=== PATIENT | female | born 1960 | race Caucasian/White ===

== ENCOUNTER 2016-09-02 11:43 | Outpatient (CLI) | payer OTHER | END 2016-09-02 11:44 | disposition home or self-care (01) | DX: M79.671 Pain in right foot (principal) ==

== ENCOUNTER 2016-10-07 09:46 | Outpatient (CLI) | payer OTHER | END 2016-10-07 09:47 | disposition home or self-care (01) | DX: M51.37 Other intervertebral disc degeneration, lumbosacral region (principal) ==

== ENCOUNTER 2016-11-04 10:50 | Outpatient (CLI) | payer OTHER | END 2016-11-04 10:51 | disposition home or self-care (01) | DX: M51.36 Other intervertebral disc degeneration, lumbar region (principal); M51.37 Other intervertebral disc degeneration, lumbosacral region; M47.896 Other spondylosis, lumbar region; M47.897 Other spondylosis, lumbosacral region ==

== ENCOUNTER 2017-06-30 09:40 | Outpatient (CLI) | payer OTHER ==
--- NOTE | 2017-06-30 11:48 | XRAY Report ---
DATE OF SERVICE: 06/30/2017 RIGHT SHOULDER: 06/30/2017 COMPARISON: None. INDICATION: Right shoulder pain with trauma. TECHNIQUE: Three views of the shoulder. FINDINGS: Normal alignment. No evidence of acute fracture. There are mild degenerative changes of the acromioclavicular joint. IMPRESSION: MILD AC JOINT ARTHROSIS. TD: 06/30/2017 12:33 [facility]
== END 2017-06-30 09:41 | disposition home or self-care (01) ==
LOC: DI 09:40
PROVIDERS: ATTEND Physician Assistant
DX: M19.011 Primary osteoarthritis, right shoulder (principal)

== ENCOUNTER 2017-08-23 09:12 | Outpatient (CLI) | payer OTHER ==
[2017-08-23 18:24] LABS: ALBUMIN 4.1 g/dL (3.2-5.5); BILIRUBIN,DIRECT 0.1 mg/dL (0.1-0.5); BILIRUBIN,TOTAL 0.6 mg/dL (0.2-1.0); TOTAL PROTEIN 8.2 g/dL (6.7-8.2)
[2017-08-24 12:56] LABS: HEPATITIS B SURFACE ANTIGEN NON-REACTIVE (NON-REACTIVE)
[2017-08-26 01:58] LABS: HEPATITIS C VIRAL RNA GENOTYPE 1a
[2017-08-26 08:01] LABS: CERULOPLASMIN 31 mg/dL (18-53)
== END 2017-08-23 09:13 | disposition home or self-care (01) ==
LOC: LAB.F 09:12
PROVIDERS: ATTEND Physician Assistant
DX: B18.2 Chronic viral hepatitis C (principal)
CPT/HCPCS: 36415; 80076; 81599; 82104; 82390; 82728; 83516; 83540; 84466; 86255; 86709; 87340; 87522; 87902

== ENCOUNTER 2017-08-30 18:38 | Outpatient (CLI) | payer OTHER ==
--- NOTE | 2017-08-31 09:13 | Ultrasound Report ---
RIGHT UPPER QUADRANT ULTRASOUND: 08/30/2017 CLINICAL INDICATION: Abnormal LFTs, hepatitis C. TECHNIQUE: Real-time scanning was performed with [employer] static images obtained. FINDINGS: The liver measures 16 cm. Hepatic echogenicity is unremarkable. No intrahepatic biliary dilatation or focal parenchymal lesion is present. The common bile duct measures 5 mm. The gallbladder is normal. The right kidney measures 9.6 cm, and demonstrates no hydronephrosis. A mildly enlarged periportal lymph node is noted, measuring 2.0 x 1.3 x 1.3 cm. IMPRESSION: NO EVIDENCE OF FOCAL LIVER LESION. MILDLY ENLARGED PERIPORTAL LYMPH NODE, LIKELY RELATED TO HEPATITIS C. TD: 08/31/2017 09:11
== END 2017-08-30 18:39 | disposition home or self-care (01) ==
LOC: DI 18:38
PROVIDERS: ATTEND Physician Assistant
DX: B18.2 Chronic viral hepatitis C (principal); R94.5 Abnormal results of liver function studies
CPT/HCPCS: 76705

== ENCOUNTER 2018-01-04 08:10 | Outpatient (CLI) | payer OTHER ==
[2018-01-04 12:04] LABS: MEAN CORPUSCULAR HEMOGLOBIN 28.5 pg (27.0-31.0); MEAN CORPUSCULAR HGB CONC 32.1 g/dL (32.0-36.0); MEAN CORPUSCULAR VOLUME 88.8 fL (81.0-99.0); MEAN PLATELET VOLUME 9.7 fL (7.9-10.8); RED BLOOD COUNT 4.9 10^6/uL (4.20-5.40); WHITE BLOOD COUNT 4.6 x10^3/uL (4.8-10.8)
[2018-01-04 12:13] LABS: PT - PROTHROMBIN TIME 11.5 secs (9.9-12.6)
[2018-01-04 12:23] LABS: ALBUMIN 3.7 g/dL (3.2-5.5); ALBUMIN/GLOBULIN RATIO 0.9 (1.0-2.2); BILIRUBIN,TOTAL 0.7 mg/dL (0.2-1.0); CALCIUM 9.1 mg/dL (8.5-10.3); CREATININE 0.8 mg/dL (0.4-1.0); TOTAL PROTEIN 7.7 g/dL (6.7-8.2)
== END 2018-01-04 08:11 | disposition home or self-care (01) ==
LOC: LAB.F 08:10
PROVIDERS: ATTEND Internal Medicine
DX: B18.2 Chronic viral hepatitis C (principal)
CPT/HCPCS: 36415; 80053; 85027; 85610; 87522

== ENCOUNTER 2018-02-05 08:40 | Outpatient (CLI) | payer OTHER ==
[2018-02-05 12:19] LABS: ALBUMIN 3.3 g/dL (3.2-5.5); BILIRUBIN,DIRECT 0.1 mg/dL (0.1-0.5); BILIRUBIN,TOTAL 0.7 mg/dL (0.2-1.0); TOTAL PROTEIN 7.2 g/dL (6.7-8.2)
[2018-02-07 15:18] LABS: HCV RNA QNT <1.18 NOT DETECTED Log IU/mL (NOT DETECTED); HCV RNA QUANT RT PCR <15 NOT DETECTED IU/mL (NOT DETECTED)
== END 2018-02-05 08:41 | disposition home or self-care (01) ==
LOC: LAB.F 08:40
PROVIDERS: ATTEND Internal Medicine
DX: B18.2 Chronic viral hepatitis C (principal)
CPT/HCPCS: 36415; 80076; 87522

== ENCOUNTER 2018-04-20 10:53 | Outpatient (CLI) | payer OTHER ==
[2018-04-23 20:23] LABS: HCV RNA QNT <1.18 NOT DETECTED Log IU/mL (NOT DETECTED); HCV RNA QUANT RT PCR <15 NOT DETECTED IU/mL (NOT DETECTED)
== END 2018-04-20 10:54 | disposition home or self-care (01) ==
LOC: LAB.F 10:53
PROVIDERS: ATTEND Internal Medicine
DX: B18.2 Chronic viral hepatitis C (principal)
CPT/HCPCS: 36415; 87522

== ENCOUNTER 2018-08-14 03:26 | Emergency (ER) | payer OTHER ==
[2018-08-14] MEDS ORDERED: SODIUM CHLORIDE 0.9% 1,000 ML IV ONE ×3 (03:34→08:17)
[2018-08-14] MEDS ORDERED: METOCLOPRAMIDE 10 MG/2 ML VIAL IVP STA (03:34)
[2018-08-14] MEDS ORDERED: LORazepam 2 MG/ML VIAL IVP STA (03:35)
--- NOTE | 2018-08-14 03:58 | ED Physician Documentation ---
History of Present Illness - Stated complaint Stated Complaint: PAIN - Chief complaint Chief Complaint: General - Additonal information Additional information: 58-year-old female presents the emergency department for evaluation of a headache. The patient is unable to give a history secondary to pain and being in quite agitated. The patient's reports finding the patient in the bathroom complaining of a headache with vomiting and agitation. He denies that she took any extra Ambien or any extra of her benzodiazepine. No reports of head injury. No reports of fever or neck pain. No reports of focal motor weakness. Symptoms are described as severe. No reports of chest pain, shortness of breath, abdominal pain, trauma. No other associated symptoms. No relieving factors Review of Systems Constitutional: denies: Fever, Chills, Fatigue Eyes: denies: Discharge Ears: denies: Ear pain Nose: denies: Congestion Throat: denies: Dental pain / toothache Respiratory: denies: Dyspnea GI: denies: Abdominal Pain : denies: Dysuria Musculoskeletal: denies: Neck pain Neurologic: reports: Headache Immunocompromised: denies: Chemotherapy PD PAST MEDICAL HISTORY - Past Surgical History Past Surgical History: No - Present Medications Home Medications: Ambulatory Orders Medication Instructions Recorded Confirmed No Known Home Medications 06/01/16 06/01/16 - Allergies Allergies/Adverse Reactions: Allergies Allergy/AdvReac Type Severity Reaction Status Date / Time amoxicillin AdvReac Rash Verified 08/14/18 03:36 - Social History Does the pt smoke?: No Smoking Status: Never smoker Does the pt drink ETOH?: No Does the pt have substance abuse?: No PD ED PE NORMAL - General General: Other (The patient is alert and oriented and In significant distress) - HEENT HEENT: Atraumatic, PERRL, EOMI, Ears normal, Moist mucous membranes - Neck Neck: Supple, no meningeal sign - Cardiac Cardiac: RRR, Strong equal pulses - Respiratory Respiratory: No respiratory distress, Clear bilaterally - Abdomen Abdomen: Soft, Non tender - Derm Derm: Normal color - Extremities Extremities: No deformity, Normal ROM s pain - Neuro Neuro: Alert and oriented X 3, die baker 2-12 intact, No motor deficit, Normal speech Results - Vitals Vitals: Vital Signs - 24 hr 08/14/18 08/14/18 08/14/18 03:31 04:18 04:46 Temperature 36.5 C Heart Rate 101 H 84 84 Respiratory 22 26 H 22 Rate Blood Pressure 160/117 H 184/122 H 187/108 H O2 Saturation 97 100 98 08/14/18 08/14/18 08/14/18 05:04 05:26 06:12 Temperature Heart Rate 78 87 77 Respiratory 24 19 16 Rate Blood Pressure 164/82 H O2 Saturation 100 96 98 08/14/18 06:32 Temperature Heart Rate 72 Respiratory 15 Rate Blood Pressure 172/91 H O2 Saturation 99 Oxygen O2 Source Nasal cannula - EKG (time done) 04:49 Rhythm: NSR Intervals: Normal NE QRS: Normal Ischemia: Normal ST segments, Non specific changes - Labs Labs: Laboratory Tests 08/14/18 08/14/18 08/14/18 04:13 04:13 04:13 WBC 11.7 H RBC 5.85 H Hgb 16.7 H Hct 50.8 H MCV 86.8 MCH 28.6 MCHC 33.0 RDW 14.3 Plt Count 311 MPV 8.1 Neut # (Auto) 9.2 H Lymph # (Auto) 1.5 [place] # (Auto) 0.9 Eos # (Auto) 0.0 Baso # (Auto) 0.1 Absolute Nucleated RBC 0.01 Nucleated RBC % 0.1 PT 12.7 H INR 1.1 VBG Total Hgb VBG Oxyhemoglobin VBG Carboxyhemoglobin VBG Methemoglobin Sodium 134 L Potassium 3.7 Chloride 101 Carbon Dioxide 15 L Anion Gap 18.0 H BUN 16 Creatinine 0.9 Estimated GFR (MDRD) 65 L Glucose 150 H Calcium 9.8 Total Bilirubin 0.9 AST 48 H ALT 26 Alkaline Phosphatase 86 Ammonia Total Creatine Kinase 113 Troponin I Total Protein 9.2 H Albumin 4.5 Globulin 4.7 H Albumin/Globulin Ratio 1.0 Lipase 24 TSH Salicylates < 6.0 Acetaminophen 12 Ethyl Alcohol < 5.0 08/14/18 08/14/18 08/14/18 04:13 04:13 04:13 WBC RBC Hgb Hct MCV MCH MCHC RDW Plt Count MPV Neut # (Auto) Lymph # (Auto) [place] # (Auto) Eos # (Auto) Baso # (Auto) Absolute Nucleated RBC Nucleated RBC % PT INR VBG Total Hgb VBG Oxyhemoglobin VBG Carboxyhemoglobin VBG Methemoglobin Sodium Potassium Chloride Carbon Dioxide Anion Gap BUN Creatinine Estimated GFR (MDRD) Glucose Calcium Total Bilirubin AST ALT Alkaline Phosphatase Ammonia 20.4 Total Creatine Kinase Troponin I < 0.04 Total Protein Albumin Globulin Albumin/Globulin Ratio Lipase TSH 4.01 Salicylates Acetaminophen Ethyl Alcohol 08/14/18 04:22 WBC RBC Hgb Hct MCV MCH MCHC RDW Plt Count MPV Neut # (Auto) Lymph # (Auto) [place] # (Auto) Eos # (Auto) Baso # (Auto) Absolute Nucleated RBC Nucleated RBC % PT INR VBG Total Hgb 17.4 VBG Oxyhemoglobin 98 VBG Carboxyhemoglobin 0.6 VBG Methemoglobin 0.3 Sodium Potassium Chloride Carbon Dioxide Anion Gap BUN Creatinine Estimated GFR (MDRD) Glucose Calcium Total Bilirubin AST ALT Alkaline Phosphatase Ammonia Total Creatine Kinase Troponin I Total Protein Albumin Globulin Albumin/Globulin Ratio Lipase TSH Salicylates Acetaminophen Ethyl Alcohol - Rads (name of study) CXR Radiology: Final report received, See rad report (IMPRESSION: Normal single view chest. ) CT head Radiology: Final report received, See rad report PD MEDICAL DECISION MAKING - ED course ED course: The patient's initial noncontrast CT of the head did not show any significant abnormality but the patient continued to be quite symptomatic. A CT angiogram of the head and neck will be ordered to further assess the patient's headache. 07:00 AM The patient's care will be turned over to the oncoming emergency physician Dr. Chirinos for follow-up on the results of the CT angiogram and for final disposition Departure - Departure Clinical Impression: Acute headache Qualifiers: Headache type: unspecified Intractability: intractable Qualified Code(s): R51 - Headache
[2018-08-14 04:23] LABS: BASOPHILS # (AUTO) 0.1 10^3/uL (0.0-0.1); BASOPHILS % (AUTO) 0.5 %; EOSINOPHILS % (AUTO) 0.2 %; HGB - HEMOGLOBIN 16.7 g/dL (12.0-16.0); LYMPHOCYTES # (AUTO) 1.5 10^3/uL (1.5-3.5); LYMPHOCYTES % (AUTO) 13.1 %; MEAN CORPUSCULAR HEMOGLOBIN 28.6 pg (27.0-31.0); MEAN CORPUSCULAR VOLUME 86.8 fL (81.0-99.0); MEAN PLATELET VOLUME 8.1 fL (7.9-10.8); MONOCYTES # (AUTO) 0.9 10^3/uL (0.0-1.0); MONOCYTES % (AUTO) 7.6 %; NEUTROPHILS # (AUTO) 9.2 10^3/uL (1.5-6.6); NEUTROPHILS % (AUTO) 78.6 %; PLT - PLATELET COUNT 311 10^3/uL (130-450); RED BLOOD COUNT 5.85 10^6/uL (4.20-5.40); RED CELL DISTRIBUTION WIDTH 14.3 % (12.0-15.0); WHITE BLOOD COUNT 11.7 x10^3/uL (4.8-10.8)
[2018-08-14] MEDS ORDERED: LORazepam 2 MG/ML VIAL IM STA (04:24)
[2018-08-14 04:30] LABS: INR 1.1 (0.8-1.2); PT - PROTHROMBIN TIME 12.7 secs (9.9-12.6)
[2018-08-14 04:37] LABS: ACETAMINOPHEN 12 ug/mL (10-30); ALBUMIN 4.5 g/dL (3.2-5.5); ALKALINE PHOSPHATASE 86 IU/L (42-121); ALT ALANINE AMINOTRANSFERASE 26 IU/L (10-60); AST ASPARTATE AMINOTRANSFERASE 48 IU/L (10-42); BILIRUBIN,TOTAL 0.9 mg/dL (0.2-1.0); BUN - BLOOD UREA NITROGEN 16 mg/dL (6-20); CALCIUM 9.8 mg/dL (8.5-10.3); CARBON DIOXIDE - CO2 15 mmol/L (21-32); CHLORIDE 101 mmol/L (101-111); CK- CREATINE KINASE 113 IU/L (22-269); CREATININE 0.9 mg/dL (0.4-1.0); GFR - MDRD 65 (>89); GLUCOSE 150 mg/dL (70-100); LIPASE 24 U/L (22-51); SALICYLATE < 6.0 mg/dL; SODIUM 134 mmol/L (135-145); TOTAL PROTEIN 9.2 g/dL (6.7-8.2)
[2018-08-14] MEDS ORDERED: ACETAMINOPHEN 1,000 MG/100 ML 100 ML IV STA (04:54)
--- NOTE | 2018-08-14 05:05 | XRAY Report ---
Reason: chest pain Procedure Date: 08/14/2018 Accession Number: [id number] / [id number] Procedure: XR - Chest 1 View X-Ray CPT Code: 60024 FULL RESULT: EXAM: CHEST RADIOGRAPHY EXAM DATE: 08/14/2018 04:52 AM. CLINICAL HISTORY: Chest pain. COMPARISON: XR CHEST PA AND LAT 10/13/2010 4:15 PM. TECHNIQUE: 1 view. FINDINGS: Lungs/Pleura: No focal opacities evident. No pleural effusion. No pneumothorax. Mediastinum: Within exam limitations, the cardiomediastinal contour is normal. Other: None. IMPRESSION: Normal single view chest. RADIA
[2018-08-14] MEDS ORDERED: diphenhydrAMINE INJ 50 MG/ML VIAL IM STA (05:08)
[2018-08-14] MEDS ORDERED: PROMETHAZINE 25 MG/1 ML VIAL IM STA (05:08)
--- NOTE | 2018-08-14 05:16 | CT Report ---
Reason: confusion Procedure Date: 08/14/2018 Accession Number: [id number] / [id number] Procedure: CT - HEAD WO CPT Code: FULL RESULT: EXAM: CT HEAD EXAM DATE: 08/14/2018 04:47 AM. CLINICAL HISTORY: Confusion. COMPARISON: None. TECHNIQUE: Multiaxial CT images were obtained from the foramen magnum to the vertex. Reformats: Sagittal and coronal. IV contrast: None. In accordance with CT protocol optimization, one or more of the following dose reduction techniques were utilized for this exam: automated exposure control, adjustment of mA and/or KV based on patient size, or use of iterative reconstructive technique. FINDINGS: Parenchyma: No intraparenchymal hemorrhage. No evidence of mass, midline shift, or CT findings of infarction. Henry-white differentiation is distinct. Extraaxial Spaces: Normal for age. No subdural or epidural collections identified. Ventricles: Normal in size and position. Sinuses and Orbits: Imaged paranasal sinuses, orbits, and mastoids show no significant abnormality. Bones: No evidence of fracture or calvarial defect. Other: None. IMPRESSION: No acute or focal intracranial abnormality. RADIA
[2018-08-14] MEDS ORDERED: HYDROmorphone 1 MG/ML CARPUJECT IM STA ×2 (05:37→05:53)
[2018-08-14] MEDS ORDERED: HYDROmorphone 1 MG/ML CARPUJECT IVP STA (05:49)
[2018-08-14] MEDS ORDERED: IOVERSOL 320 100 ML VIAL IVP ONE ×2 (06:30→07:02)
[2018-08-14 07:27] LABS: MUDS CUTOFF CONCENTRATIONS CUTOFF CONC BELOW:
[2018-08-14 07:30] LABS: BILIRUBIN,URINE NEGATIVE (NEGATIVE); GLUCOSE, URINE (UA) NEGATIVE (NEGATIVE); KETONES,URINE (UA) 15 mg/dL (NEGATIVE); LEUKOCYTE ESTERASE, URINE NEGATIVE (NEGATIVE); NITRITE,URINE NEGATIVE (NEGATIVE); OCCULT BLOOD,URINE NEGATIVE (NEGATIVE); PROTEIN,URINE NEGATIVE (NEGATIVE); UROBILINOGEN,URINE 0.2 (NORMAL) E.U./dL (NORMAL)
[2018-08-14 07:33] LABS: CLARITY,URINE CLEAR (CLEAR)
[2018-08-14 07:45] LABS: AMPHETAMINE SCREEN,URINE NEGATIVE (NEGATIVE); BENZODIAZEPINES SCREEN, URINE NEGATIVE (NEGATIVE); COCAINE SCREEN URINE NEGATIVE (NEGATIVE); METHADONE SCREEN, URINE NEGATIVE (NEGATIVE); METHAMPHETAMINES SCREEN, URINE NEGATIVE (NEGATIVE); OPIATE SCREEN, URINE NEGATIVE (NEGATIVE); OXYCODONE SCREEN, URINE NEGATIVE (NEGATIVE); PROPOXYPHENE SCREEN, URINE NEGATIVE (NEGATIVE); TRICYCLIC ANTIDEPRESSANT,URINE NEGATIVE (NEGATIVE)
--- NOTE | 2018-08-14 07:51 | CT Report ---
Reason: rogers Procedure Date: 08/14/2018 Accession Number: [id number] / [id number] Procedure: CT - ANGIO NECK W/WO CPT Code: FULL RESULT: EXAM: CT ANGIOGRAM NECK EXAM DATE: 08/14/2018 07:08 AM. CLINICAL HISTORY: Headache and confusion. COMPARISON: None. TECHNIQUE: Routine axial helical imaging was performed from the skull base through the aortic arch. Reconstructions: Routine multiplanar 3D MIP reconstructions. IV Contrast: 80 mL Optiray 320. Evaluation of arterial stenosis is based on a NASCET method of measurement. In accordance with CT protocol optimization, one or more of the following dose reduction techniques were utilized for this exam: automated exposure control, adjustment of mA and/or KV based on patient size, or use of iterative reconstructive technique. FINDINGS: The top of the aortic arch and the origins of the great vessels are patent. Congenitally dominant right cervical vertebral artery. Minimal atherosclerotic disease at the cervical carotid bifurcations, left greater than right. No evidence for acute abnormality or hemodynamically significant stenosis of the cervical vertebral or carotid arteries. IMPRESSION: No acute abnormality or flow-limiting stenosis of the cervical vertebral or carotid arteries. RADIA
--- NOTE | 2018-08-14 07:59 | CT Report ---
Reason: rogers Procedure Date: 08/14/2018 Accession Number: [id number] / [id number] Procedure: CT - ANGIO HEAD W CPT Code: FULL RESULT: EXAM: CT ANGIOGRAM HEAD. EXAM DATE: 08/14/2018 07:05 AM CLINICAL HISTORY: Headache and confusion. COMPARISON: CT head without contrast 08/14/2018 4:39 AM. TECHNIQUE: - CT Angiogram: Using a multidetector scanner, high-resolution axial images were acquired from the skull base through vertex following rapid infusion of intravenous contrast. Reformats: Multiplanar MIP reformats were reconstructed. Nascet criteria used for stenosis measurement. IV Contrast: 80 mL Optiray 320. In accordance with CT protocol optimization, one or more of the following dose reduction techniques were utilized for this exam: automated exposure control, adjustment of mA and/or KV based on patient size, or use of iterative reconstructive technique. FINDINGS: No intracranial vertebrobasilar insufficiency. Congenitally strongly dominant right vertebral artery. Posterior cerebral arteries are patent. Minimal stenosis and irregularity of the proximal left MANUFACTURER'S SERVICE REPRESENTATIVE, these findings do not appear hemodynamically significant. Mild atherosclerotic disease of the cavernous segments of the internal carotid arteries, right greater than left. The distal internal carotid arteries are otherwise patent. No proximal occlusion or flow-limiting stenosis of the main segments of the anterior or middle cerebral arteries. No evidence for [place] aneurysm or major dural venous sinus thrombus. IMPRESSION: 1. Unremarkable head CTA, no evidence for large vessel occlusion. 2. These findings do not preclude the possibility of a small or acute ischemic infarct. RADIA
--- NOTE | 2018-08-14 08:03 | ED Physician Documentation ---
History of Present Illness - Stated complaint Stated Complaint: PAIN - Chief complaint Chief Complaint: General PD PAST MEDICAL HISTORY - Past Medical History Past Medical History: Yes Cardiovascular: None Respiratory: None Neuro: Migraines Endocrine/Autoimmune: None GI: None DELICATESSEN CLERK: None : None HEENT: None Psych: None Musculoskeletal: None Derm: None - Past Surgical History Past Surgical History: No - Present Medications Home Medications: Ambulatory Orders Medication Instructions Recorded Confirmed No Known Home Medications 06/01/16 06/01/16 - Allergies Allergies/Adverse Reactions: Allergies Allergy/AdvReac Type Severity Reaction Status Date / Time amoxicillin AdvReac Rash Verified 08/14/18 03:36 - Social History Does the pt smoke?: No Smoking Status: Never smoker Does the pt drink ETOH?: No Does the pt have substance abuse?: No Results - Vitals Vitals: Vital Signs - 24 hr 08/14/18 08/14/18 08/14/18 03:31 04:18 04:46 Temperature 36.5 C Heart Rate 101 H 84 84 Respiratory 22 26 H 22 Rate Blood Pressure 160/117 H 184/122 H 187/108 H O2 Saturation 97 100 98 08/14/18 08/14/18 08/14/18 05:04 05:26 06:12 Temperature Heart Rate 78 87 77 Respiratory 24 19 16 Rate Blood Pressure 164/82 H O2 Saturation 100 96 98 08/14/18 08/14/18 08/14/18 06:32 07:15 10:05 Temperature Heart Rate 72 81 Respiratory 15 18 Rate Blood Pressure 172/91 H 173/90 H 168/86 H O2 Saturation 99 99 95 Oxygen O2 Source Room air - Labs Labs: Laboratory Tests 08/14/18 08/14/18 08/14/18 04:13 04:13 04:13 WBC 11.7 H RBC 5.85 H Hgb 16.7 H Hct 50.8 H MCV 86.8 MCH 28.6 MCHC 33.0 RDW 14.3 Plt Count 311 MPV 8.1 Neut # (Auto) 9.2 H Lymph # (Auto) 1.5 [place] # (Auto) 0.9 Eos # (Auto) 0.0 Baso # (Auto) 0.1 Absolute Nucleated RBC 0.01 Nucleated RBC % 0.1 PT 12.7 H INR 1.1 VBG Total Hgb VBG Oxyhemoglobin VBG Carboxyhemoglobin VBG Methemoglobin Sodium 134 L Potassium 3.7 Chloride 101 Carbon Dioxide 15 L Anion Gap 18.0 H BUN 16 Creatinine 0.9 Estimated GFR (MDRD) 65 L Glucose 150 H Calcium 9.8 Total Bilirubin 0.9 AST 48 H ALT 26 Alkaline Phosphatase 86 Ammonia Total Creatine Kinase 113 Troponin I Total Protein 9.2 H Albumin 4.5 Globulin 4.7 H Albumin/Globulin Ratio 1.0 Lipase 24 TSH Urine Color Urine Clarity Urine pH Ur Specific [place] Urine Protein Urine Glucose (UA) Urine Ketones Urine Occult Blood Urine Nitrite Urine Bilirubin Urine Urobilinogen Ur Leukocyte Esterase Ur Microscopic Review Urine Culture Comments Salicylates < 6.0 Urine Opiates Screen Ur Oxycodone Screen Urine Methadone Screen Ur Propoxyphene Screen Acetaminophen 12 Ur Barbiturates Screen Ur Tricyclics Screen Ur Phencyclidine Scrn Ur Amphetamine Screen U Methamphetamines Scrn U Benzodiazepines Scrn Urine Cocaine Screen U Cannabinoids Screen Ethyl Alcohol < 5.0 08/14/18 08/14/18 08/14/18 04:13 04:13 04:13 WBC RBC Hgb Hct MCV MCH MCHC RDW Plt Count MPV Neut # (Auto) Lymph # (Auto) [place] # (Auto) Eos # (Auto) Baso # (Auto) Absolute Nucleated RBC Nucleated RBC % PT INR VBG Total Hgb VBG Oxyhemoglobin VBG Carboxyhemoglobin VBG Methemoglobin Sodium Potassium Chloride Carbon Dioxide Anion Gap BUN Creatinine Estimated GFR (MDRD) Glucose Calcium Total Bilirubin AST ALT Alkaline Phosphatase Ammonia 20.4 Total Creatine Kinase Troponin I < 0.04 Total Protein Albumin Globulin Albumin/Globulin Ratio Lipase TSH 4.01 Urine Color Urine Clarity Urine pH Ur Specific [place] Urine Protein Urine Glucose (UA) Urine Ketones Urine Occult Blood Urine Nitrite Urine Bilirubin Urine Urobilinogen Ur Leukocyte Esterase Ur Microscopic Review Urine Culture Comments Salicylates Urine Opiates Screen Ur Oxycodone Screen Urine Methadone Screen Ur Propoxyphene Screen Acetaminophen Ur Barbiturates Screen Ur Tricyclics Screen Ur Phencyclidine Scrn Ur Amphetamine Screen U Methamphetamines Scrn U Benzodiazepines Scrn Urine Cocaine Screen U Cannabinoids Screen Ethyl Alcohol 08/14/18 08/14/18 04:22 07:17 WBC RBC Hgb Hct MCV MCH MCHC RDW Plt Count MPV Neut # (Auto) Lymph # (Auto) [place] # (Auto) Eos # (Auto) Baso # (Auto) Absolute Nucleated RBC Nucleated RBC % PT INR VBG Total Hgb 17.4 VBG Oxyhemoglobin 98 VBG Carboxyhemoglobin 0.6 VBG Methemoglobin 0.3 Sodium Potassium Chloride Carbon Dioxide Anion Gap BUN Creatinine Estimated GFR (MDRD) Glucose Calcium Total Bilirubin AST ALT Alkaline Phosphatase Ammonia Total Creatine Kinase Troponin I Total Protein Albumin Globulin Albumin/Globulin Ratio Lipase TSH Urine Color YELLOW Urine Clarity CLEAR Urine pH 6.0 Ur Specific [place] 1.010 Urine Protein NEGATIVE Urine Glucose (UA) NEGATIVE Urine Ketones 15 H Urine Occult Blood NEGATIVE Urine Nitrite NEGATIVE Urine Bilirubin NEGATIVE Urine Urobilinogen 0.2 (NORMAL) Ur Leukocyte Esterase NEGATIVE Ur Microscopic Review NOT INDICATED Urine Culture Comments NOT INDICATED Salicylates Urine Opiates Screen NEGATIVE Ur Oxycodone Screen NEGATIVE Urine Methadone Screen NEGATIVE Ur Propoxyphene Screen NEGATIVE Acetaminophen Ur Barbiturates Screen NEGATIVE Ur Tricyclics Screen NEGATIVE Ur Phencyclidine Scrn NEGATIVE Ur Amphetamine Screen NEGATIVE U Methamphetamines Scrn NEGATIVE U Benzodiazepines Scrn NEGATIVE Urine Cocaine Screen NEGATIVE U Cannabinoids Screen POSITIVE H Ethyl Alcohol - Rads (name of study) CTA head Radiology: Prelim report reviewed (Impression: Unremarkable head CTA, no evidence for large vessel occlusion. 2 These findings do not preclude the possibility of a smaller acute ischemic infarct.), EMP read indepedently, See rad report (Impression: No acute abnormality or flow limiting stenosis of the cervical vertebral or carotid arteries) Procedures - IVC sono (time) 0812 Bedside IVC sono: IVC measures (cm) (1.06), IVC collapsed c insp (cm) (complete), Dehydration (this is done after 2 liters in and represents persistent deficit of 1 liter.) PD MEDICAL DECISION MAKING - ED course Complexity details: considered differential, d/w patient, d/w family ED course: 58-year-old female who took some amoxicillin for a dental abscess 4 days ago had improvement in her facial swelling and developed a rash was taken off of the amoxicillin prescribed prednisone and she subsequently has developed diarrhea and comes to the emergency department with a severe headache developing in the middle of the night associated with some confusion and she is found to be significantly dehydrated even after 2 L of saline given. She has had diagnostic workup to include CTA of the head and neck which were without evidence of abnormality. She did come to the emergency department with markedly elevated blood pressure and contracted volume consistent with a fornical organ reflex. She has responded to intravenous Dilaudid for pain control and she is receiving a third liter of saline. Her pain appears controlled and her blood pressure is i mproved. Departure - Departure Disposition: 01 Home, Self Care Clinical Impression: Dehydration Acute headache Qualifiers: Headache type: unspecified Intractability: intractable Qualified Code(s): R51 - Headache Hypertension Qualifiers: Hypertension type: unspecified Qualified Code(s): I10 - Essential (primary) hypertension Condition: Stable Instructions: ED Dehydration, ED Cephalgia Unspecified Follow-Up: Estee Scott PA [Primary Care Provider] - Comments: Today in the Emergency Department your blood pressure was elevated. This can happen from the stress of the visit itself, from a current illness or circ umstance or from uncontrolled hypertension. If you take blood pressure medications take your usual mediations, have your blood pressure re-checked in an appropriate setting and follow up any elevation with your primary care doctor. Forms: Activity restrictions
[2018-08-14 10:06] VITALS: BP 168/86
== END 2018-08-14 10:44 | disposition home or self-care (01) ==
LOC: ED 03:26
DX: E86.0 Dehydration (principal); R51 Headache; I10 Essential (primary) hypertension
CPT/HCPCS: 36415; 70450; 70496; 70498; 71045; 80053; 80306; 80307; 80320; 80329; 81003; 82140; 82375; 82550; 83690; 84443; 84484; 85025; 85610; 93005; 99284; J0131; J1170; J1200; J2060; J2765; 81001; 87086

== ENCOUNTER 2018-08-14 17:12 | Emergency (ER) | payer OTHER ==
[2018-08-14] MEDS ORDERED: ONDANSETRON 4 MG/2 ML VIAL IVP STA ×2 (17:42→19:49)
[2018-08-14] MEDS ORDERED: HYDROmorphone 1 MG/ML CARPUJECT IVP STA ×3 (17:42→21:03)
--- NOTE | 2018-08-14 17:44 | ED Physician Documentation ---
PD HPI HEADACHE - Stated complaint Stated Complaint: HEADACHE/CHILLS - Chief complaint Chief Complaint: Neuro - History obtained from History obtained from: Patient, Family - History of Present Illness Timing - onset: Last night (58-year-old woman was treated for dental infection last week with amoxicillin and developed a rash. Because of that she saw the dentist who put her on prednisone. That was yesterday. She only had a single dose. Overnight last night she started to hallucinate and develop a severe headache. She was vomiting. She was seen here early this morning, had a complete workup including a white count of 11.7, negative carboxyhemoglobin, and negative CTA of the head. 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 : None HEENT: None Psych: None Musculoskeletal: None Derm: None - Past Surgical History Past Surgical History: No - Present Medications Home Medications: Ambulatory Orders Medication Instructions Recorded Confirmed Antidepresant 08/14/18 - Allergies Allergies/Adverse Reactions: Allergies Allergy/AdvReac Type Severity Reaction Status Date / Time amoxicillin AdvReac Rash Verified 08/14/18 17:19 - Social History Does the pt smoke?: No Smoking Status: Never smoker Does the pt drink ETOH?: No Does the pt have substance abuse?: No PD ED PE NORMAL - Vitals Vital signs reviewed: Yes - General General: Alert and oriented X 3, Other (She appears uncomfortable and is keeping her eyes closed in general) - HEENT HEENT: PERRL, EOMI - Neck Neck: Supple, no meningeal sign, No bony TTP - Cardiac Cardiac: RRR, No murmur - Respiratory Respiratory: No respiratory distress, Clear bilaterally - Abdomen Abdomen: Normal bowel sounds, Soft, Non tender - Back Back: No CVA TTP, No spinal TTP - Derm Derm: Normal color, Warm and dry - Neuro Neuro: Alert and oriented X 3, Normal speech Eye Opening: Spontaneous Motor: Obeys Commands Verbal: Oriented GCS Score: 15 - Psych Psych: Normal mood, Normal affect Results - Vitals Vitals: Vital Signs - 24 hr 08/14/18 08/14/18 08/14/18 17:17 17:50 18:30 Temperature 39.7 C H 37.3 C Heart Rate 99 Respiratory 16 Rate Blood Pressure 183/118 H 197/91 H O2 Saturation 98 08/14/18 08/14/18 08/14/18 19:15 19:23 20:41 Temperature 36.8 C 37.2 C Heart Rate 82 75 93 Respiratory 16 17 16 Rate Blood Pressure 190/113 H 175/82 H 175/86 H O2 Saturation 99 95 96 08/14/18 08/14/18 08/14/18 21:12 21:28 22:07 Temperature Heart Rate 75 88 72 Respiratory 18 16 16 Rate Blood Pressure 162/77 H 162/77 H 174/75 H O2 Saturation 96 98 96 08/14/18 08/15/18 23:16 00:16 Temperature 37.0 C Heart Rate 82 70 Respiratory 16 15 Rate Blood Pressure 159/83 H 123/68 O2 Saturation 95 94 Oxygen O2 Source Room air - Labs Labs: Microbiology 08/14/18 20:56 CSF Culture - Preliminary Cerebral Spinal Fluid Laboratory Tests 08/14/18 08/14/18 08/14/18 17:59 17:59 17:59 WBC 12.4 H RBC 5.34 Hgb 15.6 Hct 45.7 MCV 85.4 MCH 29.1 MCHC 34.1 RDW 15.0 Plt Count 358 MPV 8.8 Neut # (Auto) 9.9 H Lymph # (Auto) 1.7 Saline # (Auto) 0.7 Eos # (Auto) 0.0 Baso # (Auto) 0.1 Absolute Nucleated RBC 0.01 Nucleated RBC % 0.1 Sodium 131 L Potassium 3.4 L Chloride 96 L Carbon Dioxide 22 Anion Gap 13.0 BUN 10 Creatinine 0.7 Estimated GFR (MDRD) 86 L Glucose 124 H Lactic Acid 1.9 Calcium 8.9 Total Bilirubin 0.8 AST 44 H ALT 30 Alkaline Phosphatase 78 Total Protein 8.8 H Albumin 4.4 Globulin 4.4 H Albumin/Globulin Ratio 1.0 Lipase 49 CSF Color CSF Clarity Xanthrochromic CSF WBC CSF RBC CSF Cell Count Tube # CSF Glucose CSF Total Protein Influenza A (Rapid) Influenza B (Rapid) 08/14/18 08/14/18 18:30 20:56 WBC RBC Hgb Hct MCV MCH MCHC RDW Plt Count MPV Neut # (Auto) Lymph # (Auto) Saline # (Auto) Eos # (Auto) Baso # (Auto) Absolute Nucleated RBC Nucleated RBC % Sodium Potassium Chloride Carbon Dioxide Anion Gap BUN Creatinine Estimated GFR (MDRD) Glucose Lactic Acid Calcium Total Bilirubin AST ALT Alkaline Phosphatase Total Protein Albumin Globulin Albumin/Globulin Ratio Lipase CSF Color COLORLESS CSF Clarity CLEAR Xanthrochromic ABSENT CSF WBC 0 CSF RBC 75 H CSF Cell Count Tube # CSF TUBE# 2 CSF Glucose 69 CSF Total Protein 48 H Influenza A (Rapid) Negative Influenza B (Rapid) Negative Procedures - General procedure General procedure: She was difficult for IV access last night. I personally placed a long 22-gauge IV in the right deep brachial vein after ChloraPrep using real-time ultrasound guidance which flushed and juan j well. - Lumbar Puncture Position: Other (Started with her laying on her right side and proceeded to having her sit up. I tried several times with a normal and a long needle and was unsuccessful. The anesthesiologist was contacted at [phone] for assistance.) PD MEDICAL DECISION MAKING - ED course ED course: 58-year-old woman presents with headache, mild altered mental status, and fever. Had workup last night showing a white count of 11, negative CT of the head and basically other normal labs. Worse again after discharge home and febrile now with slightly higher white count. She was attended to immediately and had difficult IV access but this was placed and labs were ordered. She was very difficult for an LP due to body habitus, she has some redundant folds on her back and I was unable to complete the LP and I spoke with Dr. Rose who will come down and give it a try as well. She was administered Rocephin pending this. With some difficulty Dr. Rose was able to get the LP. Fluid was collected and sent to the lab. The LP was without evidence of meningitis. It was bloody but it was certainly a difficult and bloody stick. She has persistent severe headache, has been intermittently febrile without clear cause, and mildly altered. After some delays I was able to get a hold of the hospitalist at [place] who accepted the patient in transfer, Dr. Hendricks. Cobras were completed. She mentioned potentially giving the patient's IV acyclovir for potential herpes encephalitis and I agreed and this was ordered. Noting that herpes PCR was ordered on the CSF. Dr. Hendricks called back and did want me to give her ampicillin and vancomycin. I went to order these and did order the vancomycin, but the ampicillin was held given noted history of recent allergy to amoxicillin and lack of pertinent positive findings on the LP. Departure - Departure Disposition: 02 Transfer Acute Care Hosp Clinical Impression: Altered mental status, Acute headache Condition: Stable
[2018-08-14 18:07] LABS: BASOPHILS # (AUTO) 0.1 10^3/uL (0.0-0.1); BASOPHILS % (AUTO) 0.6 %; EOSINOPHILS % (AUTO) 0.1 %; HGB - HEMOGLOBIN 15.6 g/dL (12.0-16.0); LYMPHOCYTES # (AUTO) 1.7 10^3/uL (1.5-3.5); LYMPHOCYTES % (AUTO) 13.8 %; MEAN CORPUSCULAR HEMOGLOBIN 29.1 pg (27.0-31.0); MEAN CORPUSCULAR HGB CONC 34.1 g/dL (32.0-36.0); MEAN CORPUSCULAR VOLUME 85.4 fL (81.0-99.0); MEAN PLATELET VOLUME 8.8 fL (7.9-10.8); MONOCYTES # (AUTO) 0.7 10^3/uL (0.0-1.0); MONOCYTES % (AUTO) 5.5 %; NEUTROPHILS # (AUTO) 9.9 10^3/uL (1.5-6.6); PLT - PLATELET COUNT 358 10^3/uL (130-450); RED BLOOD COUNT 5.34 10^6/uL (4.20-5.40); WHITE BLOOD COUNT 12.4 x10^3/uL (4.8-10.8)
[2018-08-14 18:22] LABS: ALBUMIN 4.4 g/dL (3.2-5.5); BILIRUBIN,TOTAL 0.8 mg/dL (0.2-1.0); CALCIUM 8.9 mg/dL (8.5-10.3); CREATININE 0.7 mg/dL (0.4-1.0); TOTAL PROTEIN 8.8 g/dL (6.7-8.2)
[2018-08-14] MEDS ORDERED: LIDOCAINE 2% 10 ML MDV ONE ×2 (19:37→20:25)
[2018-08-14] MEDS ORDERED: cefTRIAXone 2 GM in SODIUM CHLORIDE 0.9% MINIBAG 100 ML IV STA (19:49)
[2018-08-14] MEDS ORDERED: LIDOCAINE 1% 2 ML VIAL ONE (20:27)
[2018-08-14] MEDS ORDERED: METOCLOPRAMIDE 10 MG/2 ML VIAL IVP STA (21:03)
[2018-08-14] MEDS ORDERED: SODIUM CHLORIDE 0.9% 1,000 ML IV ONE (21:24)
[2018-08-14 21:31] LABS: CSF - GLUCOSE 69 mg/dL (45-70)
[2018-08-14 22:02] LABS: CLARITY,CSF CLEAR (CLEAR); COLOR,CSF COLORLESS (COLORLESS); CSF TUBE # CSF TUBE# 2; CSF XANTHOCHROMIA ABSENT (ABSENT); RED BLOOD CELL,CSF 75 /mm^3 (0-1); WHITE BLOOD CELL,CSF 0 /mm^3 (0-5)
[2018-08-15] MEDS ORDERED: ACYCLOVIR IV STA (00:24)
[2018-08-15] MEDS ORDERED: SODIUM CHLORIDE 0.9% IV STA (00:24)
[2018-08-15] MEDS ORDERED: VANCOMYCIN INJ 2 GM in SODIUM CHLORIDE 0.9% 500 ML IV STA (00:35)
[2018-08-15 03:11] VITALS: BP 140/65
--- NOTE | 2018-08-20 14:57 | ANESTHESIA PROCEDURE NOTE ---
Diagnosis: headache Procedure: spinal tap Consent for Procedure(s) Verified and Reviewed: Yes Height and Weight: Height 5 ft 2 in Weight (kg) 88.904 kg Body Mass Index 35.8 Vital Signs: Temp Pulse Resp BP Pulse Ox 37.1 C 78 16 140/65 H 98 08/15/18 03:07 08/15/18 03:07 08/15/18 03:07 08/15/18 03:07 08/15/18 03:07 Allergies amoxicillin Adverse Reaction (Verified 08/14/18 17:19) Rash Requesting Provider: Joel MARCOS ASA classification: 2-Mild systemic disease Is this case an emergency?: Yes Anes. Monitoring and Equipment: Non-invasive BP, Pulse oximetery Procedure Notes: I was called by emergency department to do a spinal tap on a patient with a bad headache. using sterile tecnique betadine prep times three 1% lidocaine as local a 20 gauge spinal needle was placed L 4-5 interspace [address] Maldonado then took over taking samples of spinal fluid. there was no blood or paresthesias and the csf appeared clear.
== END 2018-08-15 03:15 | disposition short-term general hospital (02) ==
LOC: ED 17:12
DX: R41.82 Altered mental status, unspecified (principal); R51 Headache; D72.829 Elevated white blood cell count, unspecified; Z88.1 Allergy status to other antibiotic agents; E86.0 Dehydration; I10 Essential (primary) hypertension
CPT/HCPCS: 36415; 62270; 70450; 70496; 70498; 71045; 80320; 80329; 81003; 81599; 82140; 82375; 82550; 82945; 83605; 83690; 84157; 84484; 85610; 87040; 87070; 87205; 87275; 87276; 89051; 93005; 96361; 96365; 96367; 96372; 96374; 96375; 96376; 99284; 99285; J0131; J0133; J1170; J1200; J2060; J2765; J3370; 80053; 80306; 80307; 84443; 85025; 86695; 86696

== ENCOUNTER 2018-09-07 08:22 | Outpatient (CLI) | payer OTHER ==
--- NOTE | 2018-09-07 19:10 | MRI Report ---
Reason: OTHER SPECIFIED DISORDERS OF BRAIN Procedure Date: 09/07/2018 Accession Number: [id number] / [id number] Procedure: MRI - Cervical Spine W/O CPT Code: FULL RESULT: EXAM: MRI CERVICAL AND THORACIC SPINE WITHOUT CONTRAST EXAM DATE: 09/07/2018 09:44 AM. CLINICAL HISTORY: Neck pain. Left frontal lobe mass in the brain. COMPARISONS: None. TECHNIQUE: Multiplanar, multisequence T1-weighted and fluid-sensitive sequences of the cervical and thoracic spine without contrast. Other: None. FINDINGS: Neurologic Structures: The visualized posterior fossa structures are unremarkable. No signal abnormality in the visualized spinal cord. Alignment: There is mild reversal of the normal cervical lordosis. Bone Marrow: Linear edema is demonstrated in the superior endplates of T2 and T3, consistent with one to two-column fractures of the superior endplates. There is 10% height loss of anterior T2 and 20% height loss of anterior T3 these fractures appear to be acute. There is edema on the right T1 and C7 facets that is presumably related to degenerative change. Type I endplate change is at T5-T6 and T6-T7. Interspace Levels/Facets: All visualized intervertebral disks are desiccated. C1-C2: Unremarkable. C2-C3: Moderate left facet osteoarthritis results in severe left foraminal narrowing. C3-C4: Uncovertebral osteophytes and moderate bilateral facet osteoarthritis cause mild right and severe left foraminal narrowing. C4-C5: Severe disk height loss is accompanied by anterior endplate spurring. A posterior disk/osteophyte complex and mild right facet osteoarthritis cause mild spinal canal and moderate bilateral foraminal narrowing. C5-C6: Severe disk height loss is at C5-C6. Anterior endplate spurring is present. A posterior disk/osteophyte complex causes mild spinal canal, moderate right foraminal, and severe left foraminal narrowing. C6-C7: Moderate disk height loss is accompanied by anterior endplate spurring. A posterior disk/osteophyte complex causes mild spinal canal and left foraminal narrowing. C7-T1: Moderate right facet osteoarthritis results in moderate right foraminal narrowing when combined with uncovertebral osteophytes. A mild right facet effusion is demonstrated. T1-T2: A mild posterior disk protrusion and mild right facet osteoarthritis cause mild right foraminal and minimal spinal canal narrowing. T2-T3: A mild posterior disk protrusion causes minimal spinal canal narrowing. T3-T4: A minimal posterior disk protrusion results in minimal spinal canal narrowing. T4-T5: A minimal posterior disk protrusion causes minimal spinal canal narrowing. T5-T6: A minimal posterior disk protrusion causes minimal spinal canal narrowing. T6-C7: A minimal posterior disk protrusion causes minimal spinal canal narrowing. T7-T8: Mild disk height loss is present. A mild posterior disk protrusion causes minimal spinal canal narrowing. T8-T9: A mild posterior disk protrusion causes minimal spinal canal narrowing. T9-T10: A mild posterior disk protrusion causes minimal spinal canal narrowing. T10-T11: A mild posterior disk protrusion causes minimal spinal canal narrowing. T11-T12: Mild disk height loss is accompanied by anterior endplate spurring. A mild posterior disk/osteophyte complex causes minimal spinal canal narrowing. T12-L1: Unremarkable. Musculature: Normal. No edema or fatty atrophy. Other: The paravertebral and prevertebral soft tissues are normal. IMPRESSION: 1. One to two-column fractures of the superior endplates of T2 and T3 are acute. There is only mild height loss. 2. Severe left foraminal narrowing at C2-C3 due to moderate facet osteoarthritis. 3. Mild right and severe left foraminal narrowing at C3-C4 due to osteophytes. 4. Mild spinal canal and moderate bilateral foraminal narrowing at C4-C5 due to disk and posterior element degenerative changes. 5. Mild spinal canal, moderate right foraminal, and severe left foraminal narrowing at C5-C6 due to a disk/osteophyte complex. 6. Mild spinal canal and left foraminal narrowing at C6-C7 due to a disk/osteophyte complex. 7. Moderate right foraminal narrowing at C7-T1 due to facet osteoarthritis. 8. Mild right foraminal narrowing at T1-T2 due to disk and posterior element degenerative changes. RADIA
== END 2018-09-07 08:23 | disposition home or self-care (01) ==
LOC: DI 08:22
PROVIDERS: ATTEND Nurse Practitioner Family
DX: M47.812 Spondylosis without myelopathy or radiculopathy, cervical region (principal); M48.02 Spinal stenosis, cervical region; M25.78 Osteophyte, vertebrae; M48.54XA Collapsed vertebra, not elsewhere classified, thoracic region, initial encounter for fracture; G93.89 Other specified disorders of brain
CPT/HCPCS: 72141; 72146

== ENCOUNTER 2018-12-04 07:37 | Outpatient (CLI) | payer OTHER ==
[2018-12-04] MEDS ORDERED: GADOBUTROL 10 MMOL/10 ML VIAL ONE (07:50)
[2018-12-04] MEDS ORDERED: GADOBUTROL 10 MMOL/10 ML VIAL IVP ONE ×2 (08:48)
--- NOTE | 2018-12-04 13:41 | MRI Report ---
Reason: ENCEPHALOPATHY Procedure Date: 12/04/2018 Accession Number: [id number] / [id number] Procedure: MRI - Brain W/WO CPT Code: FULL RESULT: EXAM: MRI BRAIN WITHOUT AND WITH CONTRAST EXAM DATE: 12/04/2018 09:09 AM. CLINICAL HISTORY: Encephalopathy and headaches. COMPARISON: No prior MRI of the brain. TECHNIQUE: Multiplanar, multisequence T1-weighted and fluid-sensitive MR sequences of the brain were performed. Sequences optimized for routine evaluation. Other: None. IV Contrast: 8 mL Gadavist. FINDINGS: Brain Volume: Normal for age. Parenchyma: No restricted diffusion to suggest acute or recent ischemic infarct. No cerebral hemorrhage. No mass effect, midline shift or abnormal subdural fluid collection. No intracranial enhancing or space occupying mass allowing for motion artifact on the post contrast enhanced brain MRI images. There is a single dominant ovoid periventricular white matter lesion in the right frontal lobe that is T1 hypointense and conspicuously hyperintense on T2 and T2 FLAIR. This lesion does not enhance and measures about 10 mm long and 4 mm in diameter oriented perpendicular to the adjacent anterior right lateral ventricular body. There are 3 or 4 additional scattered nonspecific punctate foci of deep white matter T2 hyperintensities in the cerebral hemispheres, and there is no clear evidence of a posterior fossa focal plaque-like T2 hyperintense lesion. Ventricles/Cisterns: No hydrocephalus. No abnormal extra-axial fluid collection or hemorrhage. Orbits: Symmetric and unremarkable. Sella Turcica: The pituitary gland, cavernous sinuses, suprasellar cistern and optic chiasm are unremarkable. IAC: Symmetric and unremarkable. Vasculature: Normal signal flow void is seen in the major arterial structures at the skull base. The dural sinuses are patent and enhance normally. Sinuses: Mild to moderate multifocal maxillary and ethmoid sinus mucosal thickening. Grossly clear mastoids. Bones: No focal pathologic appearing marrow signal changes. Other: None. IMPRESSION: 1. No acute abnormality or enhancing mass. 2. Nonspecific multifocal cerebral white matter disease. There is a dominant 10 x 4 mm nonenhancing periventricular right frontal lobe T2 hyperintense lesion. The usual gamut of white matter conditions may be considered including postinflammatory and postischemic gliosis. 3. Multifocal paranasal sinus mucosal thickening. RADIA
== END 2018-12-04 07:38 | disposition home or self-care (01) ==
LOC: DI 07:37
PROVIDERS: ATTEND Psychiatry & Neurology Neurology
DX: R90.82 White matter disease, unspecified (principal); G93.9 Disorder of brain, unspecified
CPT/HCPCS: 70553; A9585

== ENCOUNTER 2019-04-11 09:00 | Outpatient (CLI) | payer OTHER ==
[2019-04-18 13:28] LABS: HCV RNA QNT Not detected; HCV RNA QUANT RT PCR Not detected
== END 2019-04-11 09:01 | disposition home or self-care (01) ==
LOC: LAB.S 09:00
PROVIDERS: ATTEND Neurological Surgery
DX: Z86.19 Personal history of other infectious and parasitic diseases (principal)
CPT/HCPCS: 36415; 87522

== ENCOUNTER 2022-02-28 09:14 | Emergency (ER) | payer OTHER ==
--- NOTE | 2022-02-28 09:29 | ED Physician Documentation ---
PD HPI UPPER EXT INJURY - Stated complaint Stated Complaint: LT WRIST PX - Chief complaint Chief Complaint: Trauma Ext - History obtained from History obtained from: Patient - History of Present Illness Location: Left, Elbow, Wrist Type of injury: Fall. No: Twist Where injury occurred: Street Timing - onset: How many days ago (4) Timing - duration: Days (4) Timing - details: Abrupt onset, Still present (fell off hover board last landing to left elbow and wrist. Pain continues in those areas with ROM and palpation. No weakness in fingers/hand.) Worsened by: Moving (mainly at the wrist. 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 HEENT: None Psych: None Musculoskeletal: None Derm: None - Past Surgical History Past Surgical History: No - Present Medications Home Medications: Ambulatory Orders Medication Instructions Recorded Confirmed Antidepresant 08/14/18 HYDROcod/ACETAM 5/325 [[place] 5/325] 1 ea PO Q6H PRN #15 tablet 02/28/22 - Allergies Allergies/Adverse Reactions: Allergies Allergy/AdvReac Type Severity Reaction Status Date / Time amoxicillin AdvReac Rash Verified 02/28/22 09:21 - Social History Does the pt smoke?: No Smoking Status: Never smoker Does the pt drink ETOH?: No Does the pt have substance abuse?: Yes Substance Use and Type: Marijuana, CBD oil / Products - Immunizations Immunizations are current?: Yes PD ED PE NORMAL - Vitals Vital signs reviewed: Yes - General General: Alert and oriented X 3, No acute distress, Well developed/nourished - Derm Derm: Normal color, Warm and dry - Extremities Extremities: Other (elbow with some tender posteriorly, not in AC area. Supination/pronation without pain in elbow. Wrist with tenderness dorsal. Not tender in snuffbox. ) - Neuro Neuro: Alert and oriented X 3, No motor deficit, No sensory deficit, Normal speech Results - Vitals Vitals: Vital Signs - 24 hr 02/28/22 02/28/22 09:18 10:40 Temperature 36.0 C L Heart Rate 73 75 Respiratory 16 16 Rate Blood Pressure 146/83 H 141/92 H O2 Saturation 99 100 Oxygen O2 Source Room air - Rads (name of study) left wrist Radiology: Prelim report reviewed (no fractures), See rad report left elbow Radiology: Prelim report reviewed (no fractures), See rad report PD MEDICAL DECISION MAKING - ED course Complexity details: reviewed results (elbow and wrist xrays without fracture. ), considered differential, d/w patient Departure - Departure Disposition: Home, Self Care Clinical Impression: Accidental fall Qualifiers: Encounter type: initial encounter Qualified Code(s): W19.XXXA - Unspecified fall, initial encounter Elbow contusion Qualifiers: Encounter type: initial encounter Laterality: left Qualified Code(s): S50.02XA - Contusion of left elbow, initial encounter Left wrist sprain Qualifiers: Encounter type: initial encounter Qualified Code(s): S63.502A - Unspecified sprain of left wrist, initial encounter Condition: Stable Record reviewed to determine appropriate education?: Yes Instructions: ED Sprain Elbow, ED Sprain Wrist Follow-Up: Naila Mata ARNP [Primary Care Provider] - [facility] [Provider Group] Prescriptions: HYDROcod/ACETAM 5/325 [[place] 5/325] 1 ea PO Q6H PRN #15 tablet PRN Reason: Pain Comments: The x-rays of your elbow and wrist are good without any signs of fracture. Obviously still injured and so presume some bruising of the elbow and sprain of the wrist given the mechanism of the fall. Continue with your wrist splint at home to reduce motion. Use the sling to help reduce motion of the elbow and wrist. Light use is good and gentle range of motion a few times a day to keep from having stiffness. Continue with some ibuprofen or naproxen 2-3 times daily. To that add Tylenol every 4-6 hours if needed for pain or hydrocodone if needed for worse pain. I would anticipate improvement over the next week or so back to normal. Follow- up with your primary care or the orthopedic office if persisting problems beyond that timeframe. I transmitted prescriptions to [email or web address] in [place] as that is the only 1 open today for the holiday. I am prescribing a short course of narcotic pain medication for you. These are potentially dangerous and addictive medications that should be used carefully. These medications may constipate you. Take an [id number] stool softener such as docusate twice daily with plenty of water while taking these medications. If you go 24 hours without a bowel movement, take lmgg-mbp-pyxrger MiraLAX, per package instructions. Do not drink or drive while taking these medications. If you received narcotic or sedating medications while in the emergency department do not drive for 24 hours. Store this medication in a safe, secure place and out of reach of children. It is a violation of federal law to give or sell this medication to another person or to use in a manner other than prescribed. The ED will not refill narcotic prescriptions, including prescriptions lost or stolen. You can dispose of unwanted medications at the [facility]'s office or at several pharmacies such as [email or web address]. Discharge Date/Time: 02/28/22 10:48
[2022-02-28] MEDS ORDERED: HYDROcod/ACETAM 5/325 MG TABLET PO STA (09:43)
--- NOTE | 2022-02-28 10:02 | XRAY Report ---
PROCEDURE: Forearm LT INDICATIONS: Trauma TECHNIQUE: 2 views of the forearm were acquired. COMPARISON: None FINDINGS: Bones: No acute fractures or dislocations. No suspicious bony lesions. Severe degenerative changes are seen at the first carpal metacarpal and triscaphe joints of the wrist. Soft tissues: No suspicious soft tissue calcifications or masses. IMPRESSION: No acute osseous abnormality. If there is clinical concern or persistent symptoms, additional imaging such as repeat radiographs or advanced imaging (e.g. CT, MRI) may be helpful for further evaluation. Reviewed by: Cuong Ball MD on 02/28/2022 9:00 AM [facility] Approved by: Cuong Ball MD on 02/28/2022 9:00 AM [facility] Station ID: [id number]
--- NOTE | 2022-02-28 10:02 | XRAY Report ---
PROCEDURE: Elbow 3 View LT INDICATIONS: Trauma TECHNIQUE: 3 views of the elbow were acquired. COMPARISON: None FINDINGS: Bones: No acute fractures or dislocations. No suspicious bony lesions. Soft tissues: No elbow joint effusion. No suspicious soft tissue calcifications. IMPRESSION: No acute osseous abnormality. If there is clinical concern or persistent symptoms, additional imaging such as repeat radiographs or advanced imaging (e.g. CT, MRI) may be helpful for further evaluation. Reviewed by: Cuong Ball MD on 02/28/2022 9:01 AM [facility] Approved by: Cuong Ball MD on 02/28/2022 9:01 AM [facility] Station ID: [id number]
--- NOTE | 2022-02-28 10:03 | XRAY Report ---
PROCEDURE: Wrist 4 View LT INDICATIONS: Trauma TECHNIQUE: 4 views of the wrist were acquired. COMPARISON: None. FINDINGS: Bones: No acute fractures or dislocations. No suspicious bony lesions. Severe degenerative changes at the first carpal metacarpal joint and the triscaphe joint. Moderate first metacarpophalangeal regine nt osteoarthrosis. Scaphoid view: Intact scaphoid. Soft tissues: No suspicious soft tissue calcifications. IMPRESSION: No acute osseous abnormality. If there is clinical concern or persistent symptoms, additional imaging such as repeat radiographs or advanced imaging (e.g. CT, MRI) may be helpful for further evaluation. Reviewed by: Cuong Ball MD on 02/28/2022 9:02 AM [facility] Approved by: Cuong Ball MD on 02/28/2022 9:02 AM [facility] Station ID: [id number]
[2022-02-28 10:41] VITALS: BP 141/92
== END 2022-02-28 10:48 | disposition home or self-care (01) ==
LOC: ED 09:14
DX: S50.02XA Contusion of left elbow, initial encounter (principal); V00.148A Other scooter (nonmotorized) accident, initial encounter; I10 Essential (primary) hypertension
CPT/HCPCS: 73080; 73090; 73110; 99282; 99283; A9270

== ENCOUNTER 2022-07-18 11:06 | Outpatient (CLI) | payer OTHER ==
--- NOTE | 2022-07-19 15:38 | Mammography Report ---
BILATERAL DIGITAL SCREENING MAMMOGRAM 3D/2D: 07/18/2022 CLINICAL: Routine screening. Comparison is made to exams dated: 01/05/2016 mammogram, 09/19/2013 mammogram, and 12/16/2008 mammogram - [facility]. Both breasts are heterogeneously dense, which may obscure small masses (category c / 51-75% glandular tissue). No significant masses, calcifications, or other findings are seen in either breast. There has been no significant interval change. IMPRESSION: NEGATIVE There is no mammographic evidence of malignancy. A 1 year screening mammogram is recommended. Based on the Tyrer Cuzick model (a risk assessment model) the patients lifetime risk is 8.0% and her 10 year risk is 3.2%. According to the ACR, ACS, and NCCN guidelines, an annual breast MRI exam iona g with mammogram is recommended if the patients lifetime risk is 20% or greater. This exam was interpreted at Station ID: [id number]. NOTE: For mammograms, a report in lay terms will be sent to the patient. Approximately 15% of breast malignancies will not be visualized mammographically. In the management of a palpable breast mass, a negative mammogram must not discourage biopsy of a clinically suspicious lesion. Electronically Signed By: Juan A ruth/don:07/18/2022 17:18:29 ACR BI-RADS Category 1: Negative 3341F PARENCHYMAL PATTERN: (D) - The breast(s) demonstrate(s) heterogeneously dense fibroglandular ari mccord. BI-RADS CATEGORY: (1) - 1 RECOMMENDATION: (ANNUAL) - Recommend routine annual screening mammography. [id number] 1 year screening LATERALITY: (B)
== END 2022-07-18 11:07 | disposition home or self-care (01) ==
LOC: DI 11:06
PROVIDERS: ATTEND Registered Nurse
DX: Z12.31 Encounter for screening mammogram for malignant neoplasm of breast (principal)

== ENCOUNTER 2022-09-04 15:33 | Emergency (ER) | payer OTHER ==
[2022-09-04 15:49] VITALS: BP 157/91
[2022-09-04] MEDS ORDERED: cephALEXin 250 MG CAPSULE PO STA (16:41)
[2022-09-04] MEDS ORDERED: DOXYCYCLINE 100 MG TABLET PO STA (16:41)
[2022-09-04] MEDS ORDERED: HYDROcod/ACETAM 5/325 MG TABLET PO STA (16:44)
--- NOTE | 2022-09-04 16:44 | ED Physician Documentation ---
PD HPI SKIN - Stated complaint Stated Complaint: RT LEG,ANKLE SWOLLEN - Chief complaint Chief Complaint: Wound - History obtained from History obtained from: Patient - Additional information Additional information: The patient comes to the emergency department chief complaint of pain, redness, and swelling to her right ankle and lower leg after picking a scab off her medial ankle yesterday. The patient states she also has some chills. She has not measured any fever. No drainage from the wound. She denies any other injury and is not sure how the scabbed wound came to be there. No other compla ints at this time. 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 : None HEENT: None Psych: None Musculoskeletal: None Derm: None - Past Surgical History Past Surgical History: No - Present Medications Home Medications: Ambulatory Orders Medication Instructions Recorded Confirmed Antidepresant 08/14/18 HYDROcod/ACETAM 5/325 [[place] 5/325] 1 ea PO Q6H PRN #15 tablet 02/28/22 Doxycycline [Vibramycin] 100 mg PO BID #14 tablet 09/04/22 HYDROcod/ACETAM 5/325 [[place] 5/325] 1 - 2 tablet PO Q6H PRN #14 tablet 09/04/22 cephALEXin [Keflex] 500 mg PO Q6H #28 cap 09/04/22 - Allergies Allergies/Adverse Reactions: Allergies Allergy/AdvReac Type Severity Reaction Status Date / Time amoxicillin AdvReac Rash Verified 09/04/22 15:49 - Social History Does the pt smoke?: No Smoking Status: Never smoker Does the pt drink ETOH?: No Does the pt have substance abuse?: Yes - Immunizations Immunizations are current?: Yes PD ED PE NORMAL - Vitals Vital signs reviewed: Yes - General General: Alert and oriented X 3, No acute distress, Well developed/nourished - HEENT HEENT: Atraumatic, PERRL, EOMI, Moist mucous membranes - Cardiac Cardiac: Strong equal pulses - Respiratory Respiratory: No respiratory distress - Derm Derm: Warm and dry, Other (Erythema, mild, about medial aspect of right ankle and in patches over anterior tibial area. Nothing past 4 cm inferior to the knee. No calf tenderness. Tenderness is confined to the medial aspect of the right lower extremity as described. No mass or induration. No fluctuance) - Extremities Extremities: No deformity, Other (Moderate edema about right ankle medially, extending to dorsum of foot and approximately 3 cm superior to ankle.) - Neuro Neuro: Alert and oriented X 3, No motor deficit, No sensory deficit - Psych Psych: Normal mood, Normal affect Results - Vitals Vitals: Oxygen O2 Source Room air PD Medical Decision Making - ED course Complexity details: reviewed results, re-evaluated patient, considered differential, d/w patient ED course: The patient did not palpably have evidence of an abscess. There is no drainage from the wound, the patient did seem to be exquisitely tender on the medial aspect of her right ankle. I was concerned regarding the degree of tenderness and the rapidity with which the swelling had developed per patient, and I felt that the patient should have an x-ray to look for soft tissue air. This was done and found to be negative. The patient was given oral antibiotics here in the emergency department. We have discussed the need to continue abx, and prescription has been sent for this. We have discussed the usual indications for return. Departure - Departure Disposition: 01 Home, Self Care Clinical Impression: Cellulitis Qualifiers: Site of cellulitis: extremity Site of cellulitis of extremity: lower extremity Laterality: right Qualified Code(s): L03.115 - Cellulitis of right lower limb Condition: Stable Instructions: ED Infec Skin Cellulitis Prescriptions: cephALEXin [Keflex] 500 mg PO Q6H #28 cap HYDROcod/ACETAM 5/325 [[place] 5/325] 1 - 2 tablet PO Q6H PRN #14 tablet PRN Reason: Pain Doxycycline [Vibramycin] 100 mg PO BID #14 tablet Comments: Your x-ray looks goodthere is no evidence of any air bubbles in your tissue to raise concern for a more aggressive type of bacteria. Prescriptions for your antibiotics and pain medication of been electronically transmitted to the [facility] in [place]. You have been given first doses of your antibiotics here in the emergency department. To help with the swelling, you should prop your foot up as often as possible. Whenever you are sitting or laying down, and try not to have your foot hanging down, as this will make your swelling worse. You may use ice packs as needed to help with the pain and swelling, but please do not apply ice packs for more than 30 minutes at a time. If you develop significantly worsening symptoms after A couple of days of antibiotics, please have your wound and cellulitis rechecked. At this point in time, there is no evidence of an abscess or "pus pocket", and no incision and drainage is needed at this time. Discharge Date/Time: 09/04/22 17:20
--- NOTE | 2022-09-04 17:12 | XRAY Report ---
PROCEDURE: Tib/Fib RT INDICATIONS: infection, rapid swelling TECHNIQUE: 2 views of the tibia and fibula were acquired. COMPARISON: None FINDINGS: Bones: No fractures or dislocations. No suspicious bony lesions. Soft tissues: No suspicious soft tissue calcifications or masses. IMPRESSION: Normal right tibia/fibula. Reviewed by: eGoff Etienne on 09/04/2022 4:11 PM RADHA Approved by: Geoff Etienne on 09/04/2022 4:11 PM [id number] Station ID: [id number]
== END 2022-09-04 17:20 | disposition home or self-care (01) ==
LOC: ED 15:33
DX: L03.115 Cellulitis of right lower limb (principal); I10 Essential (primary) hypertension
CPT/HCPCS: 73590; 99283; A9270

== ENCOUNTER 2024-02-20 05:17 | Emergency (ER) | payer OTHER ==
--- NOTE | 2024-02-20 05:21 | ED Physician Documentation ---
History of Present Illness - Stated complaint Stated Complaint: SWOLLEN EYES - History obtained from History obtained from: Patient - Additonal information Additional information: HPI from patient. Patient complains of bilateral eye swelling, redness, itching. She denies history of similar symptoms. No obvious exposures including no new oral medications nor anything she has been applying topically.Denies visual change.Denies fever. Symptoms were of gradual onset last night, worsening overnight. 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 : None HEENT: None Psych: None Musculoskeletal: None Derm: None - Past Surgical History Past Surgical History: No - Present Medications Home Medications: Ambulatory Orders Medication Instructions Recorded Confirmed Alprazolam [Alprazolam Xr] 0.5 - 1 tab PO DAILY PRN 11/03/22 11/03/22 DULoxetine [Cymbalta] 40 mg PO DAILY 11/03/22 11/03/22 HYDROcod/ACETAM 5/325 [[place] 5/325] 1 - 2 tablet PO Q6H PRN #14 tablet 11/03/22 HYDROcod/ACETAM 5/325 [[place] 5/325] 1 - 2 tablet PO Q6H PRN #14 tablet 11/03/22 HYDROcod/ACETAM 5/325 [[place] 5/325] 1 - 2 tablet PO Q6H PRN #14 tablet 11/03/22 NS Lisinopril/Hydrochlorothiazide 1 each PO DAILY 11/03/22 11/03/22 [Zestoretic 20-12.5 mg Tablet] Meloxicam [Mobic] 7.5 - 15 mg PO DAILY 11/03/22 11/03/22 Doxycycline Monohydrate 100 mg PO BID 10 Days #20 cap 11/08/22 Doxycycline Monohydrate 100 mg PO BID 14 Days #28 cap 11/10/22 HYDROcod/ACETAM 5/325 [[place] 5/325] 1 - 2 tablet PO Q6H PRN #14 tablet 11/17/22 HYDROcod/ACETAM 5/325 [[place] 5/325] 1 - 2 tablet PO Q6H PRN #10 tablet 12/13/22 Doxycycline [Vibramycin] 100 mg PO BID #14 tablet 02/20/24 - Allergies Allergies/Adverse Reactions: Allergies Allergy/AdvReac Type Severity Reaction Status Date / Time amoxicillin AdvReac Rash Verified 02/20/24 05:26 - Social History Does the pt smoke?: No Smoking Status: Never smoker Does the pt drink ETOH?: No Does the pt have substance abuse?: Yes - Immunizations Immunizations are current?: Yes PD ED PE NORMAL - Vitals Vital signs reviewed: Yes - General General: Alert and oriented X 3, No acute distress, Well developed/nourished PD ED PE EXPANDED - Eyes Eyes: Eyelid swelling, Eyelid erythema, Nl conjunctiva/sclera, Other (bilateral periorbital swelling, erythema. the skin above both eyes is dry and flaky s/o dermatitis). No: Exudate Results - Vitals Vitals: Oxygen O2 Source Room air - Labs Labs: Laboratory Tests 02/20/24 02/20/24 06:00 06:00 WBC 4.7 L RBC 4.70 Hgb 13.8 Hct 43.9 MCV 93.4 MCH 29.4 MCHC 31.4 L RDW 14.2 Plt Count 206 MPV 10.0 Neut # (Auto) 1.9 Lymph # (Auto) 2.0 [place] # (Auto) 0.4 Eos # (Auto) 0.3 Baso # (Auto) 0.1 Absolute Nucleated RBC 0.00 Nucleated RBC % 0.0 Sodium 139 Potassium 4.2 Chloride 105 Carbon Dioxide 30 Anion Gap 4.0 L BUN 19 Creatinine 0.7 Estimated GFR (MDRD) 85 L Glucose 109 H Calcium 9.2 PD Medical Decision Making - ED course Complexity details: considered differential, d/w patient Departure - Departure Disposition: 01 Home, Self Care Clinical Impression: Periorbital dermatitis Condition: Good Instructions: ED Hypertension Conf Out Of Control, ED Cellulitis Mayi Orbital Follow-Up: Naila Mata ARNP [Primary Care Provider] - Prescriptions: Doxycycline [Vibramycin] 100 mg PO BID #14 tablet Comments: The cause of the swelling and redness around your eyes is not apparent at this time. Emergent testing is unlikely to result in diagnosis, but testing/reevaluation in the outpatient setting is warranted. I recommend that you contact your primary care provider today when the office opens to arrange for the next available appointment for follow-up/reevaluation. You might benefit from referral to a [facility] if the diagnosis is still unclear when you see your primary care provider. I am prescribing a one-week course of oral antibiotics (doxycycline) to cover the possibility of skin infection (cellulitis). The first dose was given in the emergency department and I have electronically submitted a prescription for the antibiotic to the [facility] in [place]. You were also given a dose of Benadryl in the emergency department and you can continue to take Benadryl as per ([id number]) label instructions as needed for swelling/itching. Your blood pressure was very high during your emergency department stay. You were given a one-time dose of an antihypertensive medication (clonidine) in the emergency department and then a one-time dose of IV medication (labetalol) to further lower your blood pressure; these two medications reduced your blood pressure to normal range. To prevent your blood pressure from dropping too low, I recommend that you skip your dose of lisinopril today but resume taking it tomorrow. You should measure your blood pressure twice per day, write the results down, and take the record of your blood pressures to your primary care provider when you follow-up. Discharge Date/Time: 02/20/24 06:35
[2024-02-20] MEDS: diphenhydrAMINE 25 MG CAPSULE PO STA (05:45)
[2024-02-20] MEDS: DOXYCYCLINE 100 MG TABLET PO STA (05:45)
[2024-02-20] MEDS: cloNIDine 0.1 MG TABLET PO STA (05:45)
[2024-02-20] MEDS: LABETALOL 20 MG/4 ML SYRINGE IVP STA (06:07)
[2024-02-20 06:13] LABS: BASOPHILS # (AUTO) 0.1 10^3/uL (0.0-0.1); BASOPHILS % (AUTO) 1.3 %; EOSINOPHILS # (AUTO) 0.3 10^3/uL (0.0-0.7); EOSINOPHILS % (AUTO) 5.6 %; HCT - HEMATOCRIT 43.9 % (37.0-47.0); HGB - HEMOGLOBIN 13.8 g/dL (12.0-16.0); LYMPHOCYTES % (AUTO) 41.9 %; MEAN CORPUSCULAR HEMOGLOBIN 29.4 pg (27.0-31.0); MEAN CORPUSCULAR HGB CONC 31.4 g/dL (32.0-36.0); MEAN CORPUSCULAR VOLUME 93.4 fL (81.0-99.0); MONOCYTES # (AUTO) 0.4 10^3/uL (0.0-1.0); MONOCYTES % (AUTO) 9.2 %; NEUTROPHILS # (AUTO) 1.9 10^3/uL (1.5-6.6); NEUTROPHILS % (AUTO) 41.8 %; PLT - PLATELET COUNT 206 10^3/uL (130-450); RED CELL DISTRIBUTION WIDTH 14.2 % (12.0-15.0); WHITE BLOOD COUNT 4.7 x10^3/uL (4.8-10.8)
[2024-02-20 06:27] LABS: CALCIUM 9.2 mg/dL (8.5-10.3); CREATININE 0.7 mg/dL (0.6-1.3); POTASSIUM 4.2 mmol/L (3.5-4.5)
[2024-02-20 06:37] VITALS: BP 137/70; O2SAT 100
== END 2024-02-20 06:35 | disposition home or self-care (01) ==
LOC: ED 05:17
DX: H01.9 Unspecified inflammation of eyelid (principal); R60.0 Localized edema
CPT/HCPCS: 36415; 80048; 85025; 96374; 99283; A9270